=== PATIENT | male | born 1965 | race Caucasian/White ===

== ENCOUNTER 2023-06-29 17:15 | Emergency (ER) | payer OTHER ==
[~2023-06-29] VITALS: Ht 182.9 cm; Wt 95.0 kg
[2023-06-29 17:24] VITALS: O2SAT 100
[2023-06-29] MEDS: IBUPROFEN 600MG TABLET PO ONE (18:14)
[2023-06-29] MEDS ORDERED: NAPR-681 MT (21:05)
[2023-06-29] MEDS: NAPROXEN 375MG TABLET PO ONE (21:07)
[2023-06-29 21:56] VITALS: BP 141/91; PULSE 62; RESP 19; TEMP 98
== END 2023-06-29 21:57 ==
LOC: ER 17:15
DX: S09.90XA Unspecified injury of head, initial encounter (principal); R68.84 Jaw pain; Y08.89XA Assault by other specified means, initial encounter; Y93.89 Activity, other specified; Y92.89 Other specified places as the place of occurrence of the external cause; Y99.8 Other external cause status
CPT/HCPCS: 70486; 99284

== ENCOUNTER 2023-09-29 23:06 | Emergency (ER) | payer BC, MEDICAID ==
[~2023-09-29] VITALS: Ht 185.4 cm; Wt 118.0 kg
[~2023-09-29 23:06] MED LIST: NAPR-681 MT
[2023-09-29 23:16] VITALS: O2SAT 97
[2023-09-29 23:47] LABS: BASOPHILS % 0.5 % (0.0-2.0); EOSINOPHILS % 2.8 % (0.0-5.0); HEMATOCRIT. 37.9 % (42.0-52.0); HEMOGLOBIN. 12.8 g/dL (14.0-18.0); LYMPHOCYTES % 31.4 % (20.0-50.0); MEAN CORPUSCULAR HEMOGLOBIN 30.2 pg (28.0-32.0); MEAN CORPUSCULAR HGB CONC 33.9 g/dL (31.0-37.0); MEAN CORPUSCULAR VOLUME 89.2 fL (80.0-94.0); MEAN PLATELET VOLUME 8.2 fl (7.4-10.4); NEUTROPHILS % 58.3 % (40.0-76.0); PLATELET 200 x1000/uL (130-400); RED BLOOD CELL COUNT 4.25 mill/uL (4.7-6.1); RED CELL DISTRIBUTION WIDTH 13.9 % (11.6-14.6)
[2023-09-29 23:49] LABS: CHLORIDE 109 mEq/L (98-107); POTASSIUM 3.9 mEq/L (3.5-5.1); SODIUM 140 mEq/L (136-145)
[2023-09-29 23:50] LABS: CALCIUM 9.3 mg/dL (8.7-10.4); CARBON DIOXIDE 24 mEq/L (21-32)
[2023-09-29 23:55] LABS: CREATININE 0.9 mg/dL (0.6-1.3); GLUCOSE 111 mg/dL (70-105); UREA NITROGEN BLOOD 15 mg/dL (9-23)
[2023-09-30] MEDS: ACETAMINOPHEN 325MG TABLET PO NR (01:29)
[2023-09-30] MEDS: MAGNESIUM/ALUMINUM HYDROXIDE/SIMETHICONE 30ML UDC PO NR (01:33)
[2023-09-30 01:35] LABS: TROPONIN I HIGH SENSITIVITY < 4 ng/L (3.0-53)
[2023-09-30] MEDS ORDERED: GUAI600T26 MT (01:56)
[2023-09-30 02:23] VITALS: BP 104/66; PULSE 48; RESP 17; TEMP 98.2
[2023-09-30 18:10] LABS: HEPATITIS B SURFACE ANTIGEN NEGATIVE; HEPATITIS C VIR.AB 0.03 INDEXVAL (0.00-0.80)
== END 2023-09-30 02:33 | disposition home or self-care (01) ==
LOC: ER 23:06
DX: R04.2 Hemoptysis (principal); I25.2 Old myocardial infarction; Z98.890 Other specified postprocedural states
CPT/HCPCS: 36415; 71045; 80048; 84484; 85025; 86850; 86900; 93005; 99285